=== PATIENT | female | born 1990 | race Caucasian/White ===

== ENCOUNTER → 2019-08-08 10:53 | Outpatient (BNVA) | payer SELFPAY | PROVIDERS: Visit Provider Nurse Practitioner Family | DX: R50.9 Fever, unspecified (principal); J01.90 Acute sinusitis, unspecified; H65.113 Acute and subacute allergic otitis media (mucoid) (sanguinous) (serous), bilateral | CPT/HCPCS: 87071; 87400; 87880 ==

== ENCOUNTER 2019-11-03 11:26 | Emergency (ER) | payer SELFPAY ==
[2019-11-03 11:48] VITALS: BP 135/74; PULSE 48; RESP 16; TEMP 36.7; O2SAT 99; BMI 19.4
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
[2019-11-03] MEDS: naproxen 500 mg Tablet PO (13:42)
[2019-11-03] MEDS: tizanidine 4 mg Tablet PO (13:43)
[2019-11-03 13:45] VITALS: PULSE 50; RESP 16; O2SAT 98
== END 2019-11-03 13:45 | disposition home or self-care (01) ==
PROVIDERS: Emergency Provider Nurse Practitioner Family
DX: S13.4XXA Sprain of ligaments of cervical spine, initial encounter (principal); S29.012A Strain of muscle and tendon of back wall of thorax, initial encounter; V54.5XXA Driver of pick-up truck or van injured in collision with heavy transport vehicle or bus in traffic accident, initial encounter; F17.210 Nicotine dependence, cigarettes, uncomplicated
CPT/HCPCS: 12345; 72040; 72100; 99281; 99283

== ENCOUNTER 2020-04-24 00:19 | Inpatient (IN) | payer SELFPAY ==
[2020-04-24] VITALS (23 sets, daily range): BP systolic 105–154; BP diastolic 52–81; PULSE 46–79; RESP 14–20; TEMP 36.4–37.4; O2SAT 92–100
--- NOTE | 2020-04-24 | SCC_ITS ---
Procedure Done: 1. Cystoscopy, RIGHT retrograde ureteropyelogram 2. Right ureteroscopy with stone extraction. 3. Right ureteral stent placement (6 Tamazight by 24 cm double-pigtail without string) 20.8 seconds of fluoroscopic guidance, for a cumulative dose of 2.63 mGy, was provided to Dr. Stout by the radiology department. C-arm images of the abdomen were saved for the patient's permanent record. [facility]
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
[2020-04-24] MEDS: ondansetron 2 mg/ML SDV 2 mL 4 MG IVP (00:45)
[2020-04-24] MEDS: morphine 4 mg/mL SDV 1 mL IVP (00:45)
[2020-04-24] MEDS: sodium chloride 0.9% 1,000 ML 999 ML IV (00:45)
[2020-04-24 00:59] LABS: Basophils % 0.2 %; Eosinophils % 0.1 %; Hematocrit 44.4 % (37.0-47.0); Lymphocytes # 0.9 10^3/uL (0.8-4.8); Lymphocytes % 5.3 %; Mean Corpuscular HGB Conc 33.8 g/dL (30.0-36.0); Mean Corpuscular Hemoglobin 31.3 pg (28.0-34.0); Mean Corpuscular Volume 92.5 fL (81-99); Mean Platelet Volume 11.2 fL (7.4-10.4); Monocytes # 0.2 10^3/uL (0.2-0.9); Monocytes % 1.4 %; Neutrophils # 15.23 10^3/uL (1.8-7.7); Neutrophils % 92.6 %; Nucleated Red Blood Cells % 0 %; Platelet Count 215 10^3/cmm (130-400); Red Cell Distribution Width 11.8 % (12.1-15.1); White Blood Count 16.5 10^3/uL (4.0-10.0)
[2020-04-24 01:09] LABS: HCG, Serum Qual Negative (Negative)
[2020-04-24 01:16] LABS: Alanine Aminotransferase 19 U/L (0-33); Albumin Level 4.3 g/dL (3.5-5.2); Alkaline Phosphatase 76 IU/L (35-105); Anion Gap 16.3 (5-19); Aspartate Amino Transferase 19 U/L (0-32); Blood Urea Nitrogen 14 mg/dL (6-20); Calcium 9.6 mg/dL (8.5-10.5); Carbon Dioxide 25 mmol/L (22-29); Chloride 101 mmol/L (98-107); Globulin 2.9 g/dL (1.3-4.6); Glucose 140 mg/dL (65-115); Lipase 45 U/L (13-60); Osmolality Calculated 291 mOsm/kg (285-295); Potassium 3.3 mmol/L (3.5-5.1); Sodium 139 mmol/L (136-145); Total Bilirubin 0.5 mg/dL (0.15-1.2); Total Protein 7.2 g/dL (6.6-8.7)
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
[2020-04-24 02:18] LABS: Bilirubin Urine Neg (Negative); Blood Urine 3+ (Negative); Glucose Urine UA Norm (Normal); Ketones Urine 2+ (Negative); Leukocyte Esterase Urine 1+ (Negative); Nitrate Urine Negative (Negative); Protein Urine Neg (Negative); Sulfosalicylic Acid Urine Negative (Negative); Urine Appearance Hazy (CLEAR); Urine Color Yellow (Yellow); Urobilinogen Urine Norm (Negative); pH Urine 8 (5-7)
[2020-04-24 02:19] LABS: Add Urine Culture? Yes; Bacteria Urine 3+ /hpf; Mucus Urine 1+ /hpf; Squamous Epithelial Cell Urine 0-4 /hpf (0-5); WBC Urine 80-100 /hpf (0-5)
[2020-04-24 02:40] LABS: Lactic Sepsis W/Reflex 2.9 mmol/L (0.5-2.2)
[2020-04-24 02:46] LABS: Magnesium 1.8 mg/dL (1.7-2.3)
[2020-04-24] MEDS: cefTRIAXone 1,000 MG in sodium chloride 0.9% (plus) 50 ML 100 MG IV ×2 (02:51→15:55)
[2020-04-24] MEDS: sodium chloride 0.9% 1,632.93 ML 1632.9 ML IV (03:06)
--- NOTE | 2020-04-24 03:55 | PM.HP ---
Providers/Chief Complaint Admitting Physician: Girish Chief Complaint: Right distal ureteral stone with UTI History of Present Illness Hudson Johnson is a 29 year old female presenting to ED today with complaints of abdominal pain consistent with stone. Severe, renal colicky, associated with Nausea. No fever but feels sick. UA consistent with UTI. Elevated WBC at 16,000+. CT: 6mm RIGHT UVJ stone with moderate to severe hydro. Pain controlled. Symptoms began last night about 8 PM. She denied any symptoms prior to that. Recommended emergent OR for stent but based on stone location and if hemodynamically stable, an attempt at stone removal possible fragmentation. Review of Systems Const: Reports: malaise; Denies: fever(s) or chills Eyes: Denies: change in vision or blurry vision ENMT: Denies: throat pain or hoarseness Card: Denies: chest pain or palpitations Resp: Denies: dyspnea, productive cough or wheezing GI: Reports: abdominal pain, nausea and vomiting; Denies: hematochezia : Reports: flank pain Musc: Denies: neck pain, joint redness or joint warmth Skin/Breast: Denies: rash or changing lesions Neuro: Denies: confusion, Slurred speech present or seizure-like activity Psych: Denies: anxiety or memory loss Endo: Denies: flushing Kevan/Lymph: Denies: easy bruising, easy bleeding or enlarged lymph nodes All/Imm: Denies: urticaria or acute wheezing Medications/Allergies Allergies Allergy/AdvReac Type Severity Reaction Status Date / Time No Known Allergies Allergy Verified 08/08/19 10:30 PFSH Acute PFSH: Medical History (Updated 04/24/20 @ 05:20 by Mann Stout MD) Kidney stones Social History Smoking and tobacco status: current every day smoker Alcohol intake: never Female Reproductive History: Date of last menstrual period: 04/24/20 Supplemental PFSH Information: FAMILY HISTORY: Denies abnormal bleeding or anesthetic complications. MEDICATIONS: Denies taking any prescription medications. No prior surgeries Vitals/I&O/Wt Last Vital Signs Temp 97.6 F 04/24/20 00:24 Pulse 53 L 04/24/20 03:07 Resp 18 04/24/20 03:07 BP 142/72 04/24/20 03:07 Pulse Ox 98 12/15/20 03:07 04/23/20 04/23/20 04/24/20 14:59 22:59 06:59 Intake Total 1050 / 1050 Balance 1050 / 1050 Weight last 48 hrs Weight 120 lb Physical Exam Const: COMMON NORMALS: no acute distress, alert and well nourished GENERAL APPEARANCE: well kempt and well developed ORIENTATION/CONSCIOUSNESS: not confused HENMT: HEAD & SCALP: normocephalic and atraumatic Eye: CONJUNCTIVA: Yes conjunctivae normal Neck/C-Spine: COMMON NORMALS: full ROM GENERAL: Yes normal visual inspection Lymph: LYMPHATIC: no lymphadenopathy noted and no lymphedema noted Resp: COMMON NORMALS: normal respiratory effort EFFORT & INSPECTION: No labored and No Actively coughing AUSCULTATION: clear to auscultation bilaterally Cardio: COMMON NORMALS: regular rate, regular rhythm and No murmurs present (Cardio) RATE: regular rate RHYTHM: regular rhythm GI: INSPECTION: Yes normal to inspection AUSCULTATION: Yes normoactive bowel sounds PALPATION: Yes Soft to palpation and Yes Tenderness to palpation present (GI) Details: RLQ and RUQ : BLADDER/KIDNEY EXAM: Yes bladder normal to palpation EXTERNAL FEMALE EXAM: Yes normal appearance of the urethra Back/Pelvis: GENERAL BACK: Yes CVA tenderness CVA tenderness: right OTHER: Right CVA tenderness. Extremity: COMMON NORMALS: no clubbing, cyanosis or edema Neuro: COMMON NORMALS: no focal motor deficits SENSORIUM/ORIENTATION: Yes alert Psych: COMMON NORMALS: mental status grossly normal APPEARANCE: Yes grossly normal and Yes well kempt ATTITUDE: Yes calm and Yes engaged THOUGHT PROCESS: Normal thought process present Skin: COMMON NORMALS: no rashes or lesions noted and no jaundice GENERAL SKIN EXAM: no rashes or lesions noted, turgor normal and no mottling Data : 04/24/20 00:39 04/24/20 00:39 A&P Assessment and plan (1) Right ureteral calculus: Complicated by UTI with leukocytosis, mildly elevated lactate. PLANS: 1. To the operating room emergently for cystoscopy and right ureteral stent placement with hopefully ease enough access to deal with the stone at the same setting if hemodynamically stable. 2. Reviewed possibility of need for antegrade approach if none able to access the ureter proximal to the stone with a wire. Status: Acute (2) Acute cystitis without hematuria: 80?100 white cells. Culture sent. Antibiotics initiated. Status: Acute Attestations Medical Necessity Statement*: UTI and stone. Emergency stenting recommended. Possible intervention with stone extraction if feasible and safe. 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
[2020-04-24 04:12] LABS: Reflex Lactate Order REFLEX LACTIC ORDERD
--- NOTE | 2020-04-24 05:48 | ANES.PREANE2 ---
Pre-Anesthetic Assessment Pre-Anesthetic Assessment: Height/Weight: Height 1.65 m Weight 54.431 kg Temp Pulse Resp BP Pulse Ox 97.6 F 53 L 18 126/69 96 04/24/20 00:24 04/24/20 04:28 04/24/20 04:28 04/24/20 04:28 04/24/20 04:28 Preop Diagnosis: R uv junction ureteral stone Proposed Procedure: Operation Date: 04/24/20 05:50 Proposed Procedures p Cystoscopy(Not Applicable) - Mann Stout MD Operation Date: 04/24/20 05:45 Proposed Procedures p Cystoscopy(Not Applicable) - Mann Stout MD s Retrograde Pyelogram(Right) - MD jessica Lambert Ureteroscopy(Right) - MD jessica Lambert Laser Lithotripsy(Right) - MD jessica Lambert Ureteral Stent Placement(Right) - Mann Stout MD Was Beta Jesus taken within 24 hours: N/A Last intake: Intake Last Liquid Date 04/23/20 Last Liquid Time 00:00 Last Solid Date 04/23/20 Last Solid Time 17:00 Social: Social History: Tobacco Exam: Pre-Anes Outpt Exam: alert, oriented x 3, clear to auscultation bilaterally and regular rate & rhythm Airway: Submandibular: WNL Cervical ROM: WNL MP: 2 Dentition: Chipped and Loose Additional comments: very poor; multiple caries History/ROS: No significant history except as noted Pulmonary: Pulmonary: None reported CV/HEM: CV/HEM: None reported : : None reported Hepatic: Hepatic: None reported GI: GI: None reported Metabolic: Metabolic: None reported Musc/skel: Musc/skel: None reported Neuropsych: Neuropsych: None reported Anesthetic Plan: ASA status: 2E Anesthesia: Anesthesia Evaluation and General PFSH Anesthesia PFSH: Medical History (Updated 04/24/20 @ 05:20 by Mann Stout MD) Kidney stones Social History Smoking and tobacco status: current every day smoker Alcohol intake: never Female Reproductive History: Date of last menstrual period: 04/24/20 Supplemental PFSH Information: FAMILY HISTORY: Denies abnormal bleeding or anesthetic complications. MEDICATIONS: Denies taking any prescription medications. No prior surgeries Data Anesthesia CBC & Chem 7: 04/24/20 00:39 04/24/20 00:39 Other Labs: Laboratory Results - last 48 hr 04/24/20 04/24/20 04/24/20 00:39 00:39 00:39 WBC 16.5 H RBC 4.80 Hgb 15.0 Hct 44.4 MCV 92.5 MCH 31.3 MCHC 33.8 RDW 11.8 L Plt Count 215 MPV 11.2 H Neut % (Auto) 92.6 Lymph % (Auto) 5.3 [place] % (Auto) 1.4 Eos % (Auto) 0.1 Baso % (Auto) 0.2 Neut # (Auto) 15.23 H Lymph # (Auto) 0.9 [place] # (Auto) 0.2 Eos # (Auto) 0.0 Baso # (Auto) 0.0 Nucleated RBC % (auto) 0 Nucleated RBCs # 0.0 Sodium 139 Potassium 3.3 L Chloride 101 Carbon Dioxide 25 Anion Gap 16.3 BUN 14 Creatinine 0.9 GFR Calculation 74.0 L Glucose 140 H Calculated Osmolality 291 Lactic Acid Calcium 9.6 Magnesium Total Bilirubin 0.5 AST 19 ALT 19 Alkaline Phosphatase 76 Total Protein 7.2 Albumin 4.3 Globulin 2.9 Lipase 45 HCG, Qual Negative Urine Color Urine Appearance Urine pH Ur Specific [place] Urine Protein Urine Glucose (UA) Urine Ketones Urine Blood Urine Nitrate Urine Bilirubin Prot Sulfosalicylic Acd Urine Urobilinogen Ur Leukocyte Esterase Urine RBC Urine WBC Ur Squamous Epith Cells Amorphous Sediment Urine Bacteria Urine Mucus 04/24/20 04/24/20 04/24/20 00:39 00:39 01:55 WBC RBC Hgb Hct MCV MCH MCHC RDW Plt Count MPV Neut % (Auto) Lymph % (Auto) [place] % (Auto) Eos % (Auto) Baso % (Auto) Neut # (Auto) Lymph # (Auto) [place] # (Auto) Eos # (Auto) Baso # (Auto) Nucleated RBC % (auto) Nucleated RBCs # Sodium Potassium Chloride Carbon Dioxide Anion Gap BUN Creatinine GFR Calculation Glucose Calculated Osmolality Lactic Acid 2.9 H Calcium Magnesium 1.8 Total Bilirubin AST ALT Alkaline Phosphatase Total Protein Albumin Globulin Lipase HCG, Qual Urine Color Yellow Urine Appearance Hazy A Urine pH 8 H Ur Specific [place] 1.020 Urine Protein Neg Urine Glucose (UA) Norm Urine Ketones 2+ H Urine Blood 3+ H Urine Nitrate Negative Urine Bilirubin Neg Prot Sulfosalicylic Acd Negative Urine Urobilinogen Norm Ur Leukocyte Esterase 1+ H Urine RBC 5-10 H Urine WBC 80-100 H Ur Squamous Epith Cells 0-4 H Amorphous Sediment Not Reportable Urine Bacteria 3+ H Urine Mucus 1+ Cardiac Studies: No Data to Display
--- NOTE | 2020-04-24 06:02 | SC_ITS ---
WS: [id number] C-arm [facility] for Urology REASON FOR EXAM: intra-op FINDINGS: Initial AP film demonstrates injection of contrast into the distal most right ureter with wire in isreal ce. The last image demonstrates the proximal end of a deployed ureteral at the L3 level No contrast ident ified to confirm location. SC/C-arm [facility] for Urology IMPRESSION: Right ureteral stent placement as above.
[2020-04-24 06:09] LABS: SARS Covid-2 Antigen Negative (Negative)
[2020-04-24] MEDS: iohexol 300 mg/mL 50 mL Btl (OR ONLY) XX (06:15)
--- NOTE | 2020-04-24 06:26 | PM.OP ---
Operative Report Date of procedure: April 24, 2020 Pre-op Diagnosis: R uv junction ureteral stone Post-op diagnosis: same Procedure Done: 1. Cystoscopy, RIGHT retrograde ureteropyelogram 2. Right ureteroscopy with stone extraction. 3. Right ureteral stent placement (6 [place] by 24 cm double-pigtail without string) Implants: Right ureteral stent Specimens removed/disposition: Right distal ureteral stone Pathology: Stone removed sent to pathology Surgeon: Girish Estimated blood loss: None Urine output: Not measured Complications: None Findings: Stone in the expected position. Bypassable with guidewire. Removed without fragmentation after balloon dilation of the distal ureter. 6 [place] by 24 cm double-pigtail stent left indwelling at the completion of the procedure Condition: stable Disposition: PACU Brief History: Mrs. Johnson is a very pleasant 29-year-old white female who presented to the emergency department last night with typical right renal colicky symptoms and evidence of a UTI. Her lactate was mildly elevated white count was also elevated but she did not have any other clinical features of sepsis. Urinalysis showed UTI. She was admitted for emergent stent placement possible ureteroscopy stone extraction. Procedure: After emergent evaluation examination and obtaining of informed consent she was taken to the operating suite on 04/24/2020 where general anesthesia was administered without difficulty after appropriate timeout was performed, SCDs confirmed to be functioning, preoperative antibiotics administered, beta-sis protocol confirmed. Prepped and draped in the usual sterile fashion in dorsolithotomy position paying careful attention to avoiding pressure points. 21 [place] cystoscope with 30 degree lens was introduced into urethral meatus and advanced into the bladder under videoscopy. The bladder was systematically examined. There was evidence of acute inflammatory changes but no cystitis cystica or other chronic infection changes. RIGHT retrograde ureteropyelogram with cone-tip catheter: The distal ureter for approximately 1.5 cm was normal and a filling defect was encountered at that point with a narrowed area just proximal to that and a markedly dilated ureter proximal to that narrowed area. Flexible tip guidewire was then advanced up the right ureter bypassing the stone curling in the area of the kidney. The ureter was then dilated distal to the stone with a 15 [place] 4 cm balloon. The wire was secured to the drapes as a safety wire and then a 7.5 [place] offset semirigid ureteroscope was advanced into the right ureter next to the guidewire. The stone was encountered in its expected position. It was pushed slightly proximal into the more dilated ureter and then grasped such that the long axis of the stone was in line with the ureter with a 3.0 grasping forceps and removed without difficulty. Reinspection of the ureter with the scope confirmed inflammatory changes where the stone had been located. For that reason it was decided to leave a stent indwelling. The cystoscope was backloaded over the safety wire and then a 6 [place] by 24 cm double-pigtail stent (no string) was advanced over the guidewire through the cystoscope into appropriate position as confirmed via fluoroscopy and cystoscopy. The bladder was drained and the procedure was completed. She tolerated the procedure well without complications and was awakened in the operating room and returned to the recovery room in stable condition. PLANS: 1. Admit to inpatient status for IV antibiotics. 2. If she shows evidence of deterioration from an infectious perspective we will consult the hospitalist for medical management 3. Anticipate discharge on antibiotics with follow-up stent removal after complete resolution of her infection.
[2020-04-24] MEDS: ketorolac 30 mg/mL INJ 15 MG IVP ×2 (09:49→18:36)
[2020-04-24] MEDS: dextrose 5%-sod chloride 0.9% 1,000 ML 100 ML IV ×2 (09:50→17:58)
--- NOTE | 2020-04-24 09:51 | ECG_ITS ---
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 Measurements Intervals [place] Rate: 55 P: 60 TX: 142 QRS: 59 QRSD: 106 T: 38 QT: 479 QTc: 460 Interpretive Statements SINUS BRADYCARDIA WITH MARKED SINUS ARRHYTHMIA ST DEVIATION AND MODERATE T-WAVE ABNORMALITY, CONSIDER ANTERIOR ISCHEMIA [-0.1+ mV T WAVE IN V3/V4] No previous ECG available for comparison Electronically Signed On 04-24-2020 19:33:01 PROPERTY MAINTENANCE SUPERVISOR by Leslye Healy M.D. [id number]
--- NOTE | 2020-04-24 09:51 | PC.NURSE ---
NOTIFIED DR MCDONOUGH DUE TO PT BEING BRADYCARDIC THIS AM RUNNING 48-51, PT IS IN PAIN, BLOOD PRESSURES ARE WITHIN NORMAL RANGE, PHYSICIAN ORDERED EKG NOW VIA TELEPHONE ORDER.
--- NOTE | 2020-04-24 09:59 | ANE.PACU2 ---
Inpatient post-anesthesia follow up: Airway intact: Yes Vital signs: Temperature 97.9 F Pulse Rate [Monito r] 64 Pulse Rate 51 Respiratory Rate 16 Blood Pressure [Le ft Arm] 154/81 Blood Pressure 126/75 Pulse Oximetry 100 Oxygen Delivery Me thod Room Air Oxygen Flow Rate 2 Fraction of Inspir ed Oxygen Hydration adequate: Yes Nausea and vomiting: No Pain level: 4 Mental status: Baseline
[2020-04-24] MEDS: HYDROcodone-acetaminophen 5-325 mg Tablet 1 TAB PO ×2 (15:55→22:58)
--- NOTE | 2020-04-24 18:44 | PC.NURSE ---
shift summary pt has not complained of much pain unless she is up and moving around. pt has voided 3x, appetite is good, possible d/c tomorrow.
[2020-04-25] VITALS (9 sets, daily range): BP systolic 114–130; BP diastolic 65–70; PULSE 44–78; RESP 17–20; TEMP 36.4–37.9; O2SAT 94–99
[2020-04-25 02:36] LABS: Basophils % 0.1 %; Eosinophils % 0.1 %; Hematocrit 36.6 % (37.0-47.0); Hemoglobin 12.3 g/dL (11.5-15.3); Lymphocytes # 1.3 10^3/uL (0.8-4.8); Lymphocytes % 8.3 %; Mean Corpuscular HGB Conc 33.6 g/dL (30.0-36.0); Mean Corpuscular Hemoglobin 31.5 pg (28.0-34.0); Mean Corpuscular Volume 93.8 fL (81-99); Mean Platelet Volume 10.9 fL (7.4-10.4); Monocytes # 0.9 10^3/uL (0.2-0.9); Monocytes % 5.7 %; Neutrophils # 12.81 10^3/uL (1.8-7.7); Neutrophils % 85.1 %; Nucleated Red Blood Cells % 0 %; Platelet Count 141 10^3/cmm (130-400); White Blood Count 15.1 10^3/uL (4.0-10.0)
[2020-04-25 02:56] LABS: Anion Gap 11.6 (5-19); Blood Urea Nitrogen 9 mg/dL (6-20); Calcium 8.1 mg/dL (8.5-10.5); Carbon Dioxide 22 mmol/L (22-29); Chloride 107 mmol/L (98-107); Glomerular Filtration Rate 145.9 mL/min (90-130); Glucose 150 mg/dL (65-115); Osmolality Calculated 286 mOsm/kg (285-295); Potassium 3.6 mmol/L (3.5-5.1); Sodium 137 mmol/L (136-145)
[2020-04-25] MEDS: dextrose 5%-sod chloride 0.9% 1,000 ML 100 ML IV ×3 (03:20→19:58)
[2020-04-25] MEDS: cefTRIAXone 1,000 MG in sodium chloride 0.9% (plus) 50 ML 100 MG IV ×2 (03:20→14:40)
[2020-04-25] MEDS: ketorolac 30 mg/mL INJ 15 MG IVP ×3 (03:25→21:02)
--- NOTE | 2020-04-25 07:32 | USCV_ITS ---
Johnson Hudson Age: 29 Gender: F : 1990 Exam Date: 04/25/2020 08:55 Ordering Phys: Mann Stout MD Technologist: Jocelyne Crowley [place] [facility] [place]: bradycardia BP: / HR: 46 Rhythm: Sinus Technical Quality: Adequate MEASUREMENTS (Male / Female) Normal Values 2D ECHO LV Diastolic Diameter PLAX 4.3 cm 4.2 - 5.9 / 3.9 - 5.3 cm LV Systolic Diameter PLAX 2.5 cm LV Chamber Size 3.0 cm IVS Diastolic Thickness 1.0 cm 0.6 - 1.0 / 0.6 - 0.9 cm IVS Systolic Thickness 1.3 cm LVPW Diastolic Thickness 1.6 cm 0.6 - 1.0 / 0.6 - 0.9 cm LVPW Systolic Thickness 1.9 cm RV Chamber Size 3.3 cm LVOT Diameter 2.0 cm LV Ejection Fraction 2D Teich 74.2 % LV Ejection Fraction MOD 2C 75.9 % LV Ejection Fraction 2C AL 76.4 % LA Diameter 3.5 cm LA Width 3.8 cm LA Height 5.0 cm RA Width 3.1 cm RA Height 3.7 cm Aorta at Sinotubular Diameter 2.5 cm M-MODE LV Diastolic Diameter MM 4.9 cm 4.2 - 5.9 / 3.9 - 5.3 cm LV Systolic Diameter MM 2.7 cm LV Ejection Fraction MM Teich 75.9 % IVS Diastolic Thickness MM 0.8 cm 0.6 - 1.0 / 0.6 - 0.9 cm IVS Systolic Thickness MM 1.3 cm LVPW Diastolic Thickness MM 0.8 cm 0.6 - 1.0 / 0.6 - 0.9 cm LVPW Systolic Thickness MM 1.2 cm Aortic Annulus Diameter 3.0 cm LA Ao Ratio MM 1.3 MV E Point Septal Separation 0.6 cm DOPPLER AV Peak Velocity 186.0 cm/s LVOT Peak Velocity 159.0 cm/s AV Area Cont Eq vti 2.8 cm squared AV Area Cont Eq pk 2.8 cm squared MV Area PHT 5.1 cm squared Mitral E to A Ratio 1.7 MV E' Velocity 73.5 cm/s Mitral E to MV E' Ratio 8.6 Mitral E to LV E' Lateral Ratio 6.3 Mitral E to LV E' Septal Ratio 13.5 TR Peak Velocity 263.8 cm/s TR Peak Gradient 27.8 mmHg TV Peak E Velocity 97.0 cm/s Right Atrial Pressure 3.0 mmHg Pulmonary Artery Systolic Pressu 30.8 mmHg PV Peak Velocity 93.0 cm/s RV Acceleration Time 0.3 s RV Ejection Time 0.3 s RV AcT/ET 0.7 FINDINGS Left Ventricle Normal left ventricular size and systolic function, EF 74 %. No regional wall motion abnormalities. Right Ventricle The right ventricle is normal in size and function. Right Atrium The right atrium is normal in size. Left Atrium The left atrium is normal in size. Mitral Valve Trace mitral valve regurgitation. Aortic Valve No gross abnormalities noted Tricuspid Valve No gross abnormalities noted Pulmonic Valve No gross abnormalities noted Pericardium Normal pericardium without effusion. Aorta Normal ascending aorta dimension. CONCLUSIONS Normal left ventricular size and systolic function, EF 74 %. No regional wall motion abnormalities. Trace mitral valve regurgitation. Normal cardiac chamber sizes No intracardiac shunts, based on color flow Doppler examination There are no prior echocardiogram studies to compare. Dr Elvia Gross MD FACC (Electronically Signed) Final Date: 25 April 2020 09:28 S
--- NOTE | 2020-04-25 07:34 | P.PN_ITS ---
Subjective Subjective: Interval history: She has been afebrile postop. Remains bradycardic. Denies any chest pain shortness of breath. Is fatigued. No overt cardiac symptoms but an EKG was ordered because of her bradycardia and it shows just that and possible anterior ischemia. Reviewed case with Dr. Gross who recommended troponin and echocardiogram. We will proceed with that today. Cultures are still pending. White count is slightly decreased today. Discharge pending the above. Having a lot of pain today related to the stent. She is reluctant to use pain medication. Focus on pain control this morning Vitals/I&O/Wt Last Vital Signs Temp 98.7 F 04/25/20 04:00 Pulse 46 L 04/25/20 06:00 Resp 18 04/25/20 04:00 BP 130/66 04/25/20 04:00 Pulse Ox 99 04/25/20 04:00 04/24/20 04/25/20 04/25/20 22:59 06:59 14:59 Intake Total 2303.333 / 2663.333 936.667 / 3600.000 Output Total 1050 / 1450 Balance 2303.333 / 2263.333 -113.333 / 2150.000 Weight last 48 hrs Weight 120 lb Physical Exam Narrative: EXAM NARRATIVE: Constitutional: Alert oriented, moderate distress related to stent pain. HEENT atraumatic normocephalic Chest: Normal movements Respiratory: No labored respiration, no audible wheezing, no shortness of breath Cardiovascular: Regular rate and rhythm, bradycardic Psychiatric: Severe anxiety related to the discomfort. Tender abdomen Data : 04/25/20 02:15 04/25/20 02:15 A&P Assessment and plan (1) Acute cystitis without hematuria: Urine culture is growing gram-negative rods. Final sensitivities and identification pending. Status: Acute (2) Pain due to ureteral stent: She is not tolerating the stent well. Focus on pain relief. Continue antibiotics, cultures pending Status: Acute (3) Bradycardia: We will plan on a echocardiogram and troponin per cardiology recommendations today. Dr. Gross did see the patient today and ultimately with echocardiogram normal and mildly elevated troponin he recommended repeat troponin in the morning if okay she is probably safe for discharge. Was not worried too much about the nonspecific EKG changes. Status: Acute (4) Abnormal EKG: Status: Acute Attestations Medical Necessity Statement*: Struggling with pain control regarding stent. Compounded by UTI. Follow cultures pending Cardiac evaluation for abnormal EKG and bradycardia showed only mildly elevated troponin with follow-up troponin scheduled for tomorrow. No evidence of signifi cant abnormality on echocardiogram. 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
--- NOTE | 2020-04-25 07:35 | PC.NURSE ---
I reported the pain to the nurse. the patient is hurting to much to go to the bathroom to urinate
[2020-04-25] MEDS: HYDROcodone-acetaminophen 5-325 mg Tablet 1 TAB PO ×2 (07:55→14:38)
[2020-04-25 08:22] LABS: Troponin T (5th) Once 36 ng/L (0-10)
[2020-04-25] MEDS: phenazopyridine 100 mg Tablet 200 MG PO ×3 (09:24→21:56)
--- NOTE | 2020-04-25 09:57 | PM.CONSULT ---
Providers/Reason For Consult Consulting Physican/Specialty*: JESSA Gross MD/cardiology Reason for Consult*: Patient with the bradycardia, abnormal EKG and elevated troponin T Attending Physician: Mann Stout MD History of Present Illness History of Present Illness Hudson Johnson is a 29 year old female, who is admitted to hospital with features of an acute ureteric colic and UTI. She underwent ureteroscopy followed by stone extraction and stent placement. She was found to be bradycardic on the telemetry. An EKG showed some nonspecific T wave changes. A troponin T was done which was found to be elevated. Cardiology consult is requested for further cardiac evaluation recommendations. Patient has no previous history for any cardiac illness. No history for high blood pressure, diabetes or dyslipidemia. She has no history for any cardiac arrhythmia. She was told about a heart murmur? Few years ago. However she never had any cardiac evaluation or follow-ups. She smokes 3 to 4 cigarettes a day. She has no history for any congenital heart disease. She has an 8-year-old child. She did not have any complications associate with the . Except for the pain in the lower abdomen and the back, she has no chest pain or palpitations. No unusual shortness of breath. No other specific complaints at this time. Her urine culture showed gram-negative rods. She is on IV antibiotics. She is remaining afebrile. Her father at the age of 54 is known to have heart problems including heart failure. Details are not available. One of her cousins from the paternal side is known to have some heart condition. Patient does not know the details. She denies any alcohol abuse or substance abuse. Review of Systems Narrative: CONSTITUTIONAL: No fever or chills. [] EYES: No blurring of vision or other visual disturbances lately. [] ENT: No hoarseness of voice, auditory disturbances or sore throat. CARDIOVASCULAR: As mentioned above. RESPIRATORY: No significant cough. GASTROINTESTINAL: Nausea and vomiting at the time of admission GENITOURINARY: As mentioned above INTEGUMENTARY: No skin rashes or history of skin cancer. NEURO: No transient ischemic attacks or amaurosis. PSYCHIATRIC: No history of psychosis or major depression. HEMATOLOGIC: No bleeding disorders or significant anemia. ENDOCRINE: No history of polyuria or polydipsia. MUSCULOSKELETAL: No recent joint pain or swelling. ALLERGY/IMMUNOLOGY: As mentioned above. Meds/Allergies Home Medications and Allergies Home Medications Medication Instructions Recorded Confirmed Last Taken Type ferrous sulfate [Iron (ferrous 325 mg PO DAILY 04/24/20 04/24/20 Unknown History sulfate)] Allergies Allergy/AdvReac Type Severity Reaction Status Date / Time No Known Allergies Allergy Verified 04/24/20 08:44 Current Medications Current Medications Generic Name Dose Route Start Last Admin Trade Name Freq PRN Reason Stop Dose Admin Hydrocodone Bitart/Acetaminophen 1 tab 04/24/20 07:27 04/25/20 07:55 Hydrocodone-Acetaminophen 5-325 Mg Tablet PO 1 tab Q6H PRN Administration MODERATE PAIN Dextrose/Sodium Chloride 1,000 mls @ 100 mls/hr 04/24/20 07:27 04/25/20 09:47 Dextrose 5%-Sod Chloride 0.9% IV 100 mls/hr .Q10H HA Administration Ceftriaxone Sodium 1,000 mg/ 50 mls @ 100 mls/hr 04/24/20 15:00 04/25/20 03:20 Sodium Chloride IV 100 mls/hr Q12H HA Administration Protocol Ketorolac Tromethamine 15 mg 04/24/20 07:27 04/25/20 03:25 Ketorolac 30 Mg/Ml Inj IVP 04/27/20 07:26 15 mg Q6H PRN Administration pain Phenazopyridine HCl 200 mg 04/25/20 09:00 04/25/20 09:24 Phenazopyridine 100 Mg Tablet PO 200 mg TID HA Administration PFSH Acute PFSH: Medical History (Updated 04/25/20 @ 16:44 by Elvia Gross MD) Kidney stones Family History (Updated 04/25/20 @ 13:54 by Elvia Gross MD) Father CAD (coronary artery disease) Father had heart failure and? Coronary artery disease. Details are not available. Social History Smoking and tobacco status: current every day smoker Alcohol intake: never Female Reproductive History: Date of last menstrual period: 04/24/20 Vitals/I&O/Wt Last Vital Signs Temp 97.7 F 04/25/20 07:35 Pulse 78 04/25/20 08:50 Resp 17 04/25/20 07:35 BP 127/70 04/25/20 07:35 Pulse Ox 94 04/25/20 08:50 04/24/20 04/25/20 04/25/20 22:59 06:59 14:59 Intake Total 2303.333 / 2663.333 936.667 / 3600.000 756.667 / 756.667 Output Total 1050 / 1450 200 / 200 Balance 2303.333 / 2263.333 -113.333 / 2150.000 556.667 / 556.667 Weight last 48 hrs Weight 120 lb Physical Exam Narrative: EXAM NARRATIVE: GENERAL: The patient is alert and oriented times three. Not in any acute distress. HEENT: No significant pallor, icterus or lymphadenopathy. The pupils are reactant to light. Oral cavity: There are no mucous membrane lesions. Funduscopic examination: The disk margins appear to be sharp with no exudates or hemorrhages. NECK: Trachea appears to be central. No masses noted. No JVD or thyromegaly appreciated. No carotid bruit. RESPIRATORY: Chest is symmetrical. No intercostals muscle retraction or any accessory muscle activation. There is no chest wall tenderness. Breath sounds are heard bilaterally. No rales or rhonchi heard. No evidence of any consolidation. BREASTS: Deferred. HEART: The PMI is in the 5th left intercostals space just inside the midclavicular line. No palpable precordial events. S1 and S2 are normal. No S3 or S4 heard. No pericardial rub or any click heard. Systolic murmur grade 3/6 in the aortic area. No diastolic murmurs. ABDOMEN: No vessel pulsations or distention. No tenderness. No organomegaly appreciated. No abdominal bruit. Bowel sounds are normally heard. : Deferred. RECTAL: Deferred. LYMPHATIC: No lymphadenopathy noted in the neck or groin. EXTREMITIES: No edema or cyanosis. No clubbing. The pulses are symmetrical bilaterally. The radial, femoral, dorsalis pedis and the posterior tibial pulses are palpated and found to be in good volume and amplitude. MUSCULOSKELETAL: Gait is normal. There is no joint deformity or swelling noted. No joint tenderness or any effusion. The shoulder and hip joints appear to have normal range of motion. SKIN: There are no significant scars or skin rash noted. NEUROPSYCHIATRIC: The patient is alert and oriented x3. Appears to be in a good mood. The higher functions are grossly within normal limits. No tremors or rigidity noted. Data Labs: Other Labs: Laboratory Last Values WBC 15.1 10^3/uL (4.0 -10.0) H 04/25/20 02:15 RBC 3.90 10^6/uL (4.1 -5.3) L 04/25/20 02:15 Hgb 12.3 g/dL (11.5-1 5.3) 04/25/20 02:15 Hct 36.6 % (37.0-47.0 ) L 04/25/20 02:15 MCV 93.8 fL (81-99) 04/25/20 02:15 MCH 31.5 pg (28.0-34. 0) 04/25/20 02:15 MCHC 33.6 g/dL (30.0-3 6.0) 04/25/20 02:15 RDW 12.0 % (12.1-15.1 ) L 04/25/20 02:15 Plt Count 141 10^3/cmm (130 -400) 04/25/20 02:15 MPV 10.9 fL (7.4-10.4 ) H 04/25/20 02:15 Neut % (Auto) 85.1 % 04/25/20 02:15 Lymph % (Auto) 8.3 % 04/25/20 02:15 [place] % (Auto) 5.7 % 04/25/20 02:15 Eos % (Auto) 0.1 % 04/25/20 02:15 Baso % (Auto) 0.1 % 04/25/20 02:15 Neut # (Auto) 12.81 10^3/uL (1. 8-7.7) H 04/25/20 02:15 Lymph # (Auto) 1.3 10^3/uL (0.8- 4.8) 04/25/20 02:15 [place] # (Auto) 0.9 10^3/uL (0.2- 0.9) 04/25/20 02:15 Eos # (Auto) 0.0 10^3/uL (0.0- 0.8) 04/25/20 02:15 Baso # (Auto) 0.0 10^3/uL (0.0- 0.1) 04/25/20 02:15 Nucleated RBC % (a uto) 0 % 04/25/20 02:15 Nucleated RBCs # 0.0 /100WBC 04/25/20 02:15 Sodium 137 mmol/L (136-1 45) 04/25/20 02:15 Potassium 3.6 mmol/L (3.5-5 .1) 04/25/20 02:15 Chloride 107 mmol/L (98-10 7) 04/25/20 02:15 Carbon Dioxide 22 mmol/L (22-29) 04/25/20 02:15 Anion Gap 11.6 (5-19) 04/25/20 02:15 BUN 9 mg/dL (6-20) 04/25/20 02:15 Creatinine 0.5 mg/dL (0.5-0. 9) 04/25/20 02:15 GFR Calculation 145.9 mL/min (90- 130) H 04/25/20 02:15 Glucose 150 mg/dL (65-115 ) H 04/25/20 02:15 Calculated Osmolal ity 286 mOsm/kg (285- 295) 04/25/20 02:15 Lactic Acid 2.9 mmol/L (0.5-2 .2) H 04/24/20 00:39 Calcium 8.1 mg/dL (8.5-10 .5) L 04/25/20 02:15 Magnesium 1.8 mg/dL (1.7-2. 3) 04/24/20 00:39 Total Bilirubin 0.5 mg/dL (0.15-1 .2) 04/24/20 00:39 AST 19 U/L (0-32) 04/24/20 00:39 ALT 19 U/L (0-33) 04/24/20 00:39 Alkaline Phosphata se 76 IU/L (35-105) 04/24/20 00:39 Troponin T Gen 5 n g/L 36 ng/L (0-10) H 04/25/20 05:12 Total Protein 7.2 g/dL (6.6-8.7 ) 04/24/20 00:39 Albumin 4.3 g/dL (3.5-5.2 ) 04/24/20 00:39 Globulin 2.9 g/dL (1.3-4.6 ) 04/24/20 00:39 Lipase 45 U/L (13-60) 04/24/20 00:39 HCG, Qual Negative (Negati ve) 04/24/20 00:39 Urine Color Yellow (Yellow) 04/24/20 01:55 Urine Appearance Hazy (CLEAR) A 04/24/20 01:55 Urine pH 8 (5-7) H 04/24/20 01:55 Ur Specific Gravit y 1.020 (1.005-1.0 30) 04/24/20 01:55 Urine Protein Neg (Negative) 04/24/20 01:55 Urine Glucose (UA) Norm (Normal) 04/24/20 01:55 Urine Ketones 2+ (Negative) H 04/24/20 01:55 Urine Blood 3+ (Negative) H 04/24/20 01:55 Urine Nitrate Negative (Negati ve) 04/24/20 01:55 Urine Bilirubin Neg (Negative) 04/24/20 01:55 Prot Sulfosalicyli c Acd Negative (Negati ve) 04/24/20 01:55 Urine Urobilinogen Norm mg/dL (Negat kyaw) 04/24/20 01:55 Ur Leukocyte Florinda ase 1+ (Negative) H 04/24/20 01:55 Urine RBC 5-10 /hpf (0-2) H 04/24/20 01:55 Urine WBC 80-100 /hpf (0-5) H 04/24/20 01:55 Ur Squamous Epith Cells 0-4 /hpf (0-5) H 04/24/20 01:55 Amorphous Sediment Not Reportable 04/24/20 01:55 Urine Bacteria 3+ /hpf (NONE) H 04/24/20 01:55 Urine Mucus 1+ /hpf 04/24/20 01:55 SARS-CoV-2 Ag (Rap id) Negative (Negati ve) 04/24/20 05:09 Micro: Micro: Microbiology 04/24/20 01:55 Urine Culture - Pr eliminary Urine,Clean Catch Gram Negative R ods Imaging^: Echo: My impression: Normal left ventricular size and systolic function, EF 74 %. No regional wall motion abnormalities. Trace mitral valve regurgitation. Normal cardiac chamber sizes No intracardiac shunts, based on color flow Doppler examination There are no prior echocardiogram studies to compare. EKG^: EKG 1: My Interpretation: Sinus bradycardia with marked sinus arrhythmia. Some nonspecific ST-T changes. No previous EKGs available for comparison A&P Assessment and plan (1) Elevated troponin: Patient currently has no chest pain or any specific cardiac symptoms. Elevated troponin T, could be a type II myocardial infarction from the sepsis. A cardiac etiology cannot be completely excluded especially in view of the nonspecific EKG changes. It may be appropriate to do some serial cardiac enzymes to evaluate the trend Status: Acute (2) Abnormal EKG: Changes and nonspecific. No previous EKGs available. An echocardiogram was done to further evaluate. Echocardiogram revealed no wall motion abnormalities. Normal LV ejection fraction. Status: Acute (3) Bradycardia: Patient's bradycardia is asymptomatic. Most likely related to pain. She may not require any specific intervention at this point. Status: Acute Additional A&P Information I will got into a repeat troponin T. I may hold off on any medication changes at this time. 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
[2020-04-25] MEDS: ondansetron 2 mg/ML SDV 2 mL 4 MG IVP ×2 (12:16→21:02)
[2020-04-25 14:43] LABS: Troponin T (5th) Once 73 ng/L (0-10)
--- NOTE | 2020-04-25 16:40 | PC.RESP ---
Smoking Cessation information sent to patient.
--- NOTE | 2020-04-25 16:42 | ECG_ITS ---
[facility] Test Date: 2020-04-25 Pat Name: Hudson Johnson Department: Room: 253 Gender: Female Reimbursement Spec: : 1990 Requested By: Elvia Gross Order Number: [id number] Kim MD: Elvia Gross M.D. Measurements Intervals [place] Rate: 47 P: 40 IA: 114 QRS: 50 QRSD: 108 T: 30 QT: 449 QTc: 397 Interpretive Statements SINUS BRADYCARDIA WITH SHORT IA INTERVAL ST DEVIATION AND MODERATE T-WAVE ABNORMALITY, CONSIDER ANTEROLATERAL ISCHEMIA [-0.1+ mV T WAVE IN V3-V6] Compared to ECG 04/24/2020 10:33:26 Short IA interval now present Sinus arrhythmia no longer present T-wave abnormality still present Possible ischemia still present Electronically Signed On 04-26-2020 22:52:21 BELT WEAVER by Elvia Gross M.D. [id number]
[2020-04-25] MEDS: aspirin 325 mg Tablet PO (19:18)
--- NOTE | 2020-04-25 20:50 | PC.NURSE ---
NAUSEA Pt was c/o abd pain but when took Hydrocodone to room she was nauseated with some gagging. Did not give po med. All Zofran orders are from PACU or anesthesia. Dr Stout called with order received. Was given IV Zofran and IV Toradol for nausea and pain
[2020-04-26] VITALS (8 sets, daily range): BP systolic 122–160; BP diastolic 63–87; PULSE 39–46; RESP 14–19; TEMP 36.4–36.9; O2SAT 95–100
[2020-04-26] MEDS: cefTRIAXone 1,000 MG in sodium chloride 0.9% (plus) 50 ML 100 MG IV (02:41)
[2020-04-26] MEDS: ketorolac 30 mg/mL INJ 15 MG IVP ×2 (02:54→08:54)
[2020-04-26] MEDS: dextrose 5%-sod chloride 0.9% 1,000 ML 100 ML IV (06:02)
[2020-04-26] MEDS: HYDROcodone-acetaminophen 5-325 mg Tablet 1 TAB PO ×2 (06:05→13:43)
--- NOTE | 2020-04-26 06:24 | PC.NURSE ---
SHIFT SUMMARY Has slept for intervals. Has had c/o right lower abd and side pain several times and has received IV Toradol and po Hydrocodone prn. Also received IV Zofran X1 for c/o nausea. No emesis but some gagging with the nausea. Is taking water very well. Voiding with urine orange colored from Pyridium. At first of night was c/o pain with urination and occ feeling of urgency. This am says last couple of times she urinated the pain was gone. IV fluids infusing at 100ml/hr rate. Telemetry has shown SB all night with HR getting as low as 39 but mostly stays in mid 40's. Asymptomatic with this
[2020-04-26 06:34] LABS: Troponin T (5th) Once 75 ng/L (0-10)
[2020-04-26 06:36] LABS: Alanine Aminotransferase 30 U/L (0-33); Albumin Level 2.9 g/dL (3.5-5.2); Alkaline Phosphatase 48 IU/L (35-105); Anion Gap 11.3 (5-19); Aspartate Amino Transferase 23 U/L (0-32); Blood Urea Nitrogen 4 mg/dL (6-20); Calcium 7.4 mg/dL (8.5-10.5); Carbon Dioxide 22 mmol/L (22-29); Chloride 106 mmol/L (98-107); Globulin 1.8 g/dL (1.3-4.6); Glomerular Filtration Rate 188.7 mL/min (90-130); Glucose 98 mg/dL (65-115); Osmolality Calculated 279 mOsm/kg (285-295); Potassium 3.3 mmol/L (3.5-5.1); Sodium 136 mmol/L (136-145); Total Bilirubin 0.2 mg/dL (0.15-1.2); Total Protein 4.7 g/dL (6.6-8.7)
[2020-04-26 06:55] LABS: Basophils % 0.3 %; Eosinophils % 0.6 %; Hemoglobin 11.5 g/dL (11.5-15.3); Lymphocytes # 1.5 10^3/uL (0.8-4.8); Lymphocytes % 22.3 %; Mean Corpuscular HGB Conc 32.9 g/dL (30.0-36.0); Mean Corpuscular Hemoglobin 31.5 pg (28.0-34.0); Mean Corpuscular Volume 95.9 fL (81-99); Monocytes # 0.4 10^3/uL (0.2-0.9); Monocytes % 6.6 %; Neutrophils # 4.59 10^3/uL (1.8-7.7); Neutrophils % 69.9 %; Nucleated Red Blood Cells % 0 %; Platelet Count 103 10^3/cmm (130-400); Red Blood Count 3.65 10^6/uL (4.1-5.3); Red Cell Distribution Width 12.1 % (12.1-15.1); White Blood Count 6.6 10^3/uL (4.0-10.0)
--- NOTE | 2020-04-26 07:44 | PC.NURSE ---
Reported pts pulse to nurse
--- NOTE | 2020-04-26 07:56 | PM.MISC ---
Miscellaneous Note Note: Urology follow-up: Feeling better this morning. Still having stent pain but it is much better and she is able to void without severe pain. Denies any chest pain shortness of breath etc. Urine culture still pending. Troponin about the same this morning as it was yesterday afternoon. If cultures demonstrate sensitivity to oral antibiotics she should be a good candidate for discharge home this afternoon from a urologic perspective. We will wait for final input from Dr. Gross regarding further cardiac evaluation if necessary and timing of that. Hopefully that could be conducted on outpatient basis.
[2020-04-26] MEDS: phenazopyridine 100 mg Tablet 200 MG PO ×2 (08:54→15:20)
[2020-04-26] MEDS: aspirin 325 mg Tablet PO (08:54)
--- NOTE | 2020-04-26 09:20 | P.PN_ITS ---
Subjective Subjective: Interval history: Patient's ureteric colic he is improving. She has no chest pain or shortness of breath. The repeat troponin T this morning is 75, seems to be plateauing. The repeat EKG from yesterday showed some nonspecific ST-T changes in the anterolateral leads, suggestive of ischemia. The echocardiogram was unremarkable. Vitals/I&O/Wt Last Vital Signs Temp 98.2 F 04/26/20 07:43 Pulse 41 L 04/26/20 07:43 Resp 14 04/26/20 07:43 BP 149/87 04/26/20 07:43 Pulse Ox 96 04/26/20 07:43 04/25/20 04/26/20 04/26/20 22:59 06:59 14:59 Intake Total 1630 / 3266.667 1775 / 5041.667 120 / 120 Output Total 1680 / 2280 900 / 3180 Balance -50 / 986.667 875 / 1861.667 120 / 120 Physical Exam Narrative: EXAM NARRATIVE: GENERAL: The patient is alert and oriented times three. Not in any acute distress. HEENT: No significant pallor, icterus or lymphadenopathy. NECK: Trachea appears to be central. No masses noted. No JVD or thyromegaly appreciated. No carotid bruit. RESPIRATORY: Chest is symmetrical. No intercostals muscle retraction or any accessory muscle activation. There is no chest wall tenderness. Breath sounds are heard bilaterally. No rales or rhonchi heard. No evidence of any consolidation. BREASTS: Deferred. HEART: The PMI is in the 5th left intercostals space just inside the midclavicular line. No palpable precordial events. S1 and S2 are normal. No S3 or S4 heard. No pericardial rub or any click heard. Systolic murmur grade 3/6 in the aortic area. No diastolic murmurs. ABDOMEN: No vessel pulsations or distention. No tenderness. She has minimal tenderness in the lower abdomen. No organomegaly appreciated. : Deferred. RECTAL: Deferred. LYMPHATIC: No lymphadenopathy noted in the neck or groin. EXTREMITIES: No edema or cyanosis. No clubbing. The pulses are symmetrical bilaterally. The radial, femoral, dorsalis pedis and the posterior tibial pulses are palpated and found to be in good volume and amplitude. MUSCULOSKELETAL: No acute joint deformities or swelling SKIN: There are no significant scars or skin rash noted. NEUROPSYCHIATRIC: The patient is alert and oriented x3. Appears to be in a good mood. The higher functions are grossly within normal limits. No tremors or rigid ity noted. Data : 04/26/20 04:39 04/26/20 04:39 Micro: Microbiology 04/24/20 01:55 Urine Culture - Preliminary Urine,Clean Catch Gram Negative Rods A&P Assessment and plan (1) Elevated troponin: Patient's troponin T is plateauing. Since she has no significant wall motion normalities by echocardiogram, it could be related to type II myocardial infarction from the infection. However the possibility of underlying coronary ischemia cannot be excluded. Since she is pain-free, if she continues to remain stable otherwise, may be discharged home from a cardiac standpoint. We may bring her back as an outpatient to do a stress test, once infection is appropriately treated. I will see her in the clinic next week to evaluate her progress. I may go ahead and do a lipid profile and start her on a statin drug, if the cholesterol is elevated. Status: Acute (2) Abnormal EKG: The EKG changes may suggest anterolateral ischemia. Currently she seems stable. Status: Acute (3) Bradycardia: Patient's bradycardia is asymptomatic. Possibly vasovagal. Since she is asymptomatic, may hold off on any intervention. 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
[2020-04-26 09:40] LABS: Chol HDL Ratio 2.83 mg/dL (0.0-4.40); Cholesterol 113 mg/dL (0-200); HDL Cholesterol 40 mg/dL (60-100); LDL Cholesterol Calculated 59 mg/dL (50-129); LDL HDL Ratio 1.48 RATIO (0.00-3.22); Triglycerides 70 mg/dL (0-150)
[2020-04-26 10:21] LABS: Thyroid Stimulating Hormone 0.57 uIU/mL (0.27-4.20)
--- NOTE | 2020-04-26 15:08 | P.DS_ITS ---
Discharge Providers Date of Admission: 04/24/20 06:40 Date of Discharge: April 26, 2020 Attending Provider at Admission: Mann Stout MD Attending Provider at Discharge: Mann Stout MD Diagnoses at Discharge Discharge Diagnosis (1) Elevated troponin: Status: Acute (2) Abnormal EKG: Status: Acute (3) Bradycardia: Status: Acute (4) Urolithiasis: Status: Acute (5) Acute cystitis without hematuria: Status: Acute Reason for Visit 2 Reason for Visit: Right distal ureteral stone with UTI Hospital Course Hospital Course After evaluation in the emergency department on day of admission she was taken emergently to the operating room for ureteroscopy, stone extraction and stent for severely symptomatic right distal ureteral stone with UTI. Postoperatively she did reasonably well. She had a lot of pain related to the stent but that improved with antibiotic therapy and pain medication. At time of discharge that was markedly improved. Final urine culture grew E. coli greater than 100,000 colonies sensitive to fluoroquinolones, nitrofurantoin, cefuroxime. Resistant to Septra tetracycline and ampicillin. Will be discharged on ciprofloxacin. Postoperatively she also experienced bradycardia. An EKG showed some nonspecific changes and cardiology was consulted for further evaluation. A troponin was mildly elevated and plateaued before discharge. Echocardiogram showed no significant pathology. Dr. Gross recommended outpatient follow-up and that has been scheduled. Was discharged on postoperative day #2 in stable condition. Physical Exam Const: COMMON NORMALS: no acute distress, alert and well nourished GENERAL APPEARANCE: well kempt and well developed ORIENTATION/CONSCIOUSNESS: not confused HENMT: COMMON NORMALS: normocephalic and atraumatic HEAD & SCALP: normocephalic and atraumatic Eye: COMMON NORMALS: conjunctivae normal and no scleral icterus CONJUNCTIVA: Yes conjunctivae normal Neck/C-Spine: COMMON NORMALS: full ROM GENERAL: Yes normal visual inspection Resp: EFFORT & INSPECTION: No labored and No Actively coughing Extremity: COMMON NORMALS: no clubbing, cyanosis or edema Neuro: SENSORIUM/ORIENTATION: Yes alert Psych: COMMON NORMALS: mental status grossly normal APPEARANCE: Yes grossly normal and Yes well kempt ATTITUDE: Yes calm and Yes engaged Skin: COMMON NORMALS: no rashes or lesions noted and no jaundice GENERAL SKIN EXAM: no rashes or lesions noted Discharge Data Data Completed and Pending: Completed Studies During Hospitalization Category Date Time Status CT kidney stone [id number] Urgent Cat Scan 04/24/20 00:34 Completed Pathology: Surgic al [PTH] Routine Pth 04/24/20 06:38 Completed CV echo complete* [id number] Routine Ultrasound 04/25/20 07:32 Completed Pending at discharge Category Date Time Status Stone Analysis Ro utine Lab 04/24/20 06:15 Received T4, Thyroxine, To daisy Routine Lab 04/26/20 04:39 Received Labs from last 24 hours 04/26/20 04/26/20 04/26/20 04:39 04:39 04:39 WBC RBC Hgb Hct MCV MCH MCHC RDW Plt Count MPV Neut % (Auto) Lymph % (Auto) [place] % (Auto) Eos % (Auto) Baso % (Auto) Neut # (Auto) Lymph # (Auto) [place] # (Auto) Eos # (Auto) Baso # (Auto) Nucleated RBC % (a uto) Nucleated RBCs # Sodium Potassium Chloride Carbon Dioxide Anion Gap BUN Creatinine GFR Calculation Glucose Calculated Osmolal ity Calcium Total Bilirubin AST ALT Alkaline Phosphata se Troponin T Gen 5 n g/L Total Protein Albumin Globulin Triglycerides 70 Cholesterol 113 LDL Cholesterol, C alc 59 HDL Cholesterol 40 L LDL/HDL Ratio 1.48 Cholesterol/HDL Ra julián 2.83 TSH 0.57 Thyroxine (T4) Pending Urine Color Urine Appearance Urine pH Ur Specific Gravit y Urine Protein Urine Glucose (UA) Urine Ketones Urine Blood Urine Nitrate Urine Bilirubin Prot Sulfosalicyli c Acd Urine Urobilinogen Ur Leukocyte Florinda ase Urine RBC Urine WBC Ur Squamous Epith Cells Urine Bacteria Urine Mucus 04/26/20 04/26/20 04/26/20 04:39 04:39 04:39 WBC 6.6 RBC 3.65 L Hgb 11.5 Hct 35.0 L MCV 95.9 MCH 31.5 MCHC 32.9 RDW 12.1 Plt Count 103 L MPV 12.0 H Neut % (Auto) 69.9 Lymph % (Auto) 22.3 [place] % (Auto) 6.6 Eos % (Auto) 0.6 Baso % (Auto) 0.3 Neut # (Auto) 4.59 Lymph # (Auto) 1.5 [place] # (Auto) 0.4 Eos # (Auto) 0.0 Baso # (Auto) 0.0 Nucleated RBC % (a uto) 0 Nucleated RBCs # 0.0 Sodium 136 Potassium 3.3 L Chloride 106 Carbon Dioxide 22 Anion Gap 11.3 BUN 4 L Creatinine 0.4 L GFR Calculation 188.7 H Glucose 98 Calculated Osmolal ity 279 L Calcium 7.4 L Total Bilirubin 0.2 AST 23 ALT 30 Alkaline Phosphata se 48 Troponin T Gen 5 n g/L 75 H Total Protein 4.7 L Albumin 2.9 L Globulin 1.8 Triglycerides Cholesterol LDL Cholesterol, C alc HDL Cholesterol LDL/HDL Ratio Cholesterol/HDL Ra julián TSH Thyroxine (T4) Urine Color Urine Appearance Urine pH Ur Specific Gravit y Urine Protein Urine Glucose (UA) Urine Ketones Urine Blood Urine Nitrate Urine Bilirubin Prot Sulfosalicyli c Acd Urine Urobilinogen Ur Leukocyte Florinda ase Urine RBC Urine WBC Ur Squamous Epith Cells Urine Bacteria Urine Mucus 04/24/20 01:55 WBC RBC Hgb Hct MCV MCH MCHC RDW Plt Count MPV Neut % (Auto) Lymph % (Auto) [place] % (Auto) Eos % (Auto) Baso % (Auto) Neut # (Auto) Lymph # (Auto) [place] # (Auto) Eos # (Auto) Baso # (Auto) Nucleated RBC % (a uto) Nucleated RBCs # Sodium Potassium Chloride Carbon Dioxide Anion Gap BUN Creatinine GFR Calculation Glucose Calculated Osmolal ity Calcium Total Bilirubin AST ALT Alkaline Phosphata se Troponin T Gen 5 n g/L Total Protein Albumin Globulin Triglycerides Cholesterol LDL Cholesterol, C alc HDL Cholesterol LDL/HDL Ratio Cholesterol/HDL Ra julián TSH Thyroxine (T4) Urine Color Yellow Urine Appearance Hazy A Urine pH 8 H Ur Specific Gravit y 1.020 Urine Protein Neg Urine Glucose (UA) Norm Urine Ketones 2+ H Urine Blood 3+ H Urine Nitrate Negative Urine Bilirubin Neg Prot Sulfosalicyli c Acd Negative Urine Urobilinogen Norm Ur Leukocyte Florinda ase 1+ H Urine RBC 5-10 H Urine WBC 80-100 H Ur Squamous Epith Cells 0-4 H Urine Bacteria 3+ H Urine Mucus 1+ Vitals: Last Vital Signs Temp 98.4 F 04/26/20 12:00 Pulse 42 L 04/26/20 13:58 Resp 16 04/26/20 12:00 BP 124/78 04/26/20 12:00 Pulse Ox 97 04/26/20 12:00 Discharge Plan Discharge Patient Disposition: Home Condition: Stable Prescriptions: [place] 5-325 mg tablet 1 tab PO Q8H PRN (Reason: pain) Qty: 12 RF: 0 ciprofloxacin HCl 500 mg tablet 500 mg PO BID Qty: 20 RF: 1 Continued Iron (ferrous sulfate) 325 mg (65 mg iron) Tablet 325 mg PO DAILY RF: 0 Discharge Orders: Discharge Order (Routine); Ordered 04/26/20 Ordered By: Mann Stout Referrals: Elvia Gross MD [Physician] - 05/01/20 11:00 am Mann Stout MD [Physician] - 04/30/20 (Cystoscopy and stent removal) Discharge Diet: Advance as tolerated Discharge Activity: Increase activity as tolerated Patient Instructions: Ciprofloxacin (By mouth), Hydrocodone/Acetaminophen (By mouth), Urinary Tract Infection in Women (GEN), Urethral Stent Placement (DC) Activity Restrictions/Additional Instructions: 1. We will plan on taking the stent out on Thursday the in my office. An appointment will be set up for you. 2. Pain medication prescription will be provided. 3. Antibiotics have been prescribed. It is very important to get them filled and take them until they are all gone. 4. Please feel free to call if you have any concerns or questions. The hospital handle rounder operator can always reach me. Discharge Attestations Time Spent in Discharge Care*: greater than 30 min Quality Metrics Clinical Quality Measures During this hospital stay, did patient experience: None Coding Level of Care Code Acute Rn Long Term Care for Chg 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 Diagnoses Elevated troponin R77.8 Abnormal EKG R94.31 Bradycardia R00.1 Urolithiasis N20.9 Acute cystitis without hematuria N30.00
[2020-04-27 09:18] LABS: T4 Total 6.5 mcg/dL (5.1-11.9)
[2020-04-28 17:14] LABS: Stone Source RIGHT URETER
== END 2020-04-26 15:59 | disposition home or self-care (01) | DRG 660 ==
LOC: ER 05:31 → OPS 05:49 → MEDSURG 06:39
PROVIDERS: Internal Medicine Cardiovascular Disease; Admitting Provider Urology; Emergency Provider Emergency Medicine; Visit Provider Urology
PROC: 0TJB8ZZ Inspection of Bladder, Via Natural or Artificial Opening Endoscopic (ICD-10-PCS; CPT 52000; principal; 2020-04-24 05:45)
PROC: 0T768DZ Dilation of Right Ureter with Intraluminal Device, Via Natural or Artificial Opening Endoscopic (ICD-10-PCS; CPT 74420; 2020-04-24 05:45)
PROC: 0TJ98ZZ Inspection of Ureter, Via Natural or Artificial Opening Endoscopic (ICD-10-PCS; CPT 52351; 2020-04-24 05:45)
PROC: 0T768DZ Dilation of Right Ureter with Intraluminal Device, Via Natural or Artificial Opening Endoscopic (ICD-10-PCS; CPT 50605; 2020-04-24 05:45)
PROC: 0T768DZ Dilation of Right Ureter with Intraluminal Device, Via Natural or Artificial Opening Endoscopic (ICD-10-PCS; 2020-04-24 05:45)
DX: N20.1 Calculus of ureter (principal); N30.00 Acute cystitis without hematuria; T83.84XA Pain due to genitourinary prosthetic devices, implants and grafts, initial encounter; F17.210 Nicotine dependence, cigarettes, uncomplicated; R00.1 Bradycardia, unspecified; R94.31 Abnormal electrocardiogram [ECG] [EKG]; Y73.1 Therapeutic (nonsurgical) and rehabilitative gastroenterology and urology devices associated with adverse incidents; E87.6 Hypokalemia
CPT/HCPCS: 12345; 36415; 74176; 76000; 80048; 80053; 80061; 81001; 82365; 83605; 83690; 83735; 84436; 84443; 84484; 84703; 85025; 87077; 87086; 87186; 87426; 88300; 93005; 93306; 96375; 99283; C2625; J0131; J0696; J1100; J1885; J2250; J2270; J2405; J2704; J3010; J3490; J7030

== ENCOUNTER → 2020-05-02 10:40 | Outpatient (BNVA) | payer SELFPAY | PROVIDERS: PCP Family Medicine; Visit Provider Urology | DX: N20.9 Urinary calculus, unspecified (principal); N30.00 Acute cystitis without hematuria; Z96.0 Presence of urogenital implants | CPT/HCPCS: 81003 ==

== ENCOUNTER 2020-07-05 17:54 | Emergency (ER) | payer SELFPAY ==
[2020-07-05 18:11] VITALS: BP 153/106; PULSE 74; RESP 15; TEMP 36.7; O2SAT 100
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
[2020-07-05] MEDS: ketorolac 30 mg/mL INJ IM (19:16)
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
[2020-07-05] MEDS: HYDROcodone-acetaminophen 5-325 mg Tablet 2 TAB PO (21:50)
--- NOTE | 2020-07-05 21:50 | PC.NURSE ---
2 hydrocodone tabs dispensed to pt for home use. Pt educated on use and overdose. Pt instructed not to drink or operate any motor vehicle while on pain meds.
[2020-07-05 21:52] VITALS: RESP 18; TEMP 36.7; O2SAT 126
--- NOTE | 2020-07-06 08:43 | DCPLANNER ---
lending manager had message to schedule a follow up appointment for patient with ortho. lending manager called the ortho clinic, spoke with Shelley, gave clinic patients information. lending manager was told that patients information would be printed and reviewed. Clinic will call patient with appointment information.
--- NOTE | 2020-07-06 09:39 | DCPLANNER ---
community manager had message to speak with patient about [facility] services. community manager called patient, and explained to patient how to get services started at [facility]. community manager explained that patient would need to go to [facility] and get initial paperwork fill it out and turn it back in. After paperwork is filled out and turned in the clinic will call patient to get services started.
--- NOTE | 2020-07-10 07:33 | DCPLANNER ---
Patient has a follow up appointment scheduled for Friday, July 10, 2020 at 11:[address] Hudson. Clinic will call patient with appointment information.
--- NOTE | 2020-07-16 08:21 | DCPLANNER ---
Patient had a follow up appointment scheduled for 07.10.[address] Hudson at [facility] - patient did attend appointment.
== END 2020-07-05 21:57 | disposition home or self-care (01) ==
PROVIDERS: Emergency Provider Family Medicine; PCP Family Medicine
DX: S43.101A Unspecified dislocation of right acromioclavicular joint, initial encounter (principal); S40.212A Abrasion of left shoulder, initial encounter; S50.312A Abrasion of left elbow, initial encounter; S50.311A Abrasion of right elbow, initial encounter; Y04.8XXA Assault by other bodily force, initial encounter; F17.210 Nicotine dependence, cigarettes, uncomplicated
CPT/HCPCS: 71101; 73030; 96372; 99283; J1885